=== PATIENT | male | born 1955 | race Caucasian/White ===

== ENCOUNTER 2017-05-13 09:21 | Emergency (ER) | payer OTHER, BC ==
[~2017-05-13] VITALS: Ht 182.9 cm; Wt 90.0 kg
[2017-05-13 09:30] VITALS: BP 147/86; PULSE 87; RESP 16; TEMP 98.2; O2SAT 99
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
== END 2017-05-13 11:22 | disposition home or self-care (01) ==
LOC: NEPD 09:21
DX: S20.212A Contusion of left front wall of thorax, initial encounter (principal); V49.60XA Unspecified car occupant injured in collision with unspecified motor vehicles in traffic accident, initial encounter
CPT/HCPCS: 71045; 99283